=== PATIENT | male | born 1935 | race Caucasian/White ===

== ENCOUNTER → 2016-08-21 | Outpatient (CLI) | payer MEDICARE | END | disposition home or self-care (01) | LOC: PCVCIMAG 14:08 | PROVIDERS: ATTEND Nuclear Medicine Nuclear Cardiology | DX: I25.10 Atherosclerotic heart disease of native coronary artery without angina pectoris (principal); I73.9 Peripheral vascular disease, unspecified; I77.9 Disorder of arteries and arterioles, unspecified; I10 Essential (primary) hypertension; E78.00 Pure hypercholesterolemia, unspecified; E11.9 Type 2 diabetes mellitus without complications | CPT/HCPCS: 93925; G0463 ==

== ENCOUNTER → 2017-03-03 | Outpatient (CLI) | payer MEDICARE, OTHER ==
--- NOTE | 2017-03-03 17:19 | PCVCIMAG ---
APPROVED REPORT Laterality: Bilateral Patient Location: Out-Patient Indications Stenosis Doppler Spectral Velocity Analysis PSV / EDVPSV / EDV ECA (R) 190 / 6 cm/sECA (L) 247 / 0 cm/s dICA (R) 86 / 8 cm/sdICA (L) 115 / 10 cm/s Los (R) 85 / 9 cm/smICA (L) 80 / 13 cm/s pICA (R) 96 / 13 cm/spICA (L) 48 / 10 cm/s Bulb (R) 50 / 5 cm/sBulb (L) 45 / 6 cm/s dCCA (R) 69 / 5 cm/sdCCA (L) 53 / 5 cm/s mCCA (R) 71 / 4 cm/smCCA (L) 69 / 3 cm/s Vert (R) 48 / 10 cm/sVert (L) 113 / 20 cm/s Findings The right carotid bulb has moderate calcified plaque. The right proximal internal carotid artery shows <40% stenosis. The right common carotid artery shows no significant stenosis. The right external carotid artery shows >50% stenosis. The left carotid bulb has moderate calcified plaque. The left proximal internal carotid artery shows <40% stenosis. The left common carotid artery shows no significant stenosis. The left external carotid artery shows >90% stenosis. Conclusion 1. Right internal carotid artery stenosis (<40%) 2. Left internal carotid artery stenosis (<40%) 3. Antegrade vertebral flow
--- NOTE | 2017-03-03 17:53 | PCVCIMAG ---
EXAM: BILATERAL LOWER EXTREMITY ARTERIAL DUPLEX INDICATION: Peripheral Arterial Disease. Leg pain. FINDINGS: Right Leg: Satisfactory arterial waveforms in the common femoral and profunda femoral arteries. Good arterial waveforms throughout the superficial femoral artery without flow-limiting stenosis. Previous stent in the mid/upper popliteal artery with mild elevated velocities at its distal portion consistent with a 40-50% restenosis not felt to be flow-limiting. Complete occlusion throughout the posterior tibial artery. The peroneal artery and anterior tibial artery are patent. Left Leg: Satisfactory arterial waveforms in the common femoral artery. 70% stenosis at the origin the profunda femoral artery. Mild stenosis [place] proximal superficial femoral artery. Stents in the mid and upper superficial femoral artery are patent. Moderate velocity elevation distal superficial femoral artery of 320 cm/s compatible with a 75% restenosis at the distal margin of a prior stent. The popliteal artery is patent. Complete occlusion throughout the posterior tibial artery. Mild stenosis proximal peroneal artery. The anterior tibial artery is patent. IMPRESSION: 40-50% restenosis mid right popliteal artery at distal margin of a prior stent not felt to be flow-limiting. 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 Mild stenosis proximal [place] left superficial femoral artery with 75% restenosis distal left superficial femoral artery within prior stent. Interval follow-up in 6 months is suggested. LOC:[id number]
== END | disposition home or self-care (01) ==
LOC: PCVCIMAG 14:11
PROVIDERS: ATTEND Internal Medicine Cardiovascular Disease
DX: I65.23 Occlusion and stenosis of bilateral carotid arteries (principal); I25.10 Atherosclerotic heart disease of native coronary artery without angina pectoris; I10 Essential (primary) hypertension; E78.00 Pure hypercholesterolemia, unspecified; G47.33 Obstructive sleep apnea (adult) (pediatric); J44.9 Chronic obstructive pulmonary disease, unspecified; E11.9 Type 2 diabetes mellitus without complications; E11.40 Type 2 diabetes mellitus with diabetic neuropathy, unspecified; I70.293 Other atherosclerosis of native arteries of extremities, bilateral legs; I77.1 Stricture of artery; Z95.5 Presence of coronary angioplasty implant and graft; Z90.49 Acquired absence of other specified parts of digestive tract; Z87.891 Personal history of nicotine dependence; Z79.82 Long term (current) use of aspirin; Z79.84 Long term (current) use of oral hypoglycemic drugs; Z95.828 Presence of other vascular implants and grafts
CPT/HCPCS: 80061; 93005; 93880; 93925; G0463

== ENCOUNTER → 2017-03-16 | Outpatient (CLI) | payer MEDICARE, OTHER ==
--- NOTE | 2017-03-16 16:20 | PCVCINTER ---
APPROVED REPORT Patient Details Patient Status: Room #: 3 The patient is a 81 year-old Male Event Personnel Alex Sifuentes RT(R), Tran Hairston RT(R), Bobby Fitzgerald RN Risk Factors Arterial HypertensionDysplipidemia (Type: 1), Peripheral Vascular Disease, Chronic Lung DiseaseHypercholesterolemiaPhysical Activity, Diabetes (Control: Oral)Tobacco History (Former) Previous Procedures/Diagnoses Previous PCI, Previous Femoral Procedure, Previous Vascular Surgery, CAD, PVD, COPD, Hypertension, Diabetes, Sleep apnea Procedure Narrative The patient was brought electively to the Cardiac Catheterization Laboratory and was prepped and draped in a sterile manner. The right femoral was infiltrated with subcutaneous anesthesia. The right coronary system was accessed and visualized with a FR4 catheter. The left coronary system was accessed and visualized with a FL4 catheter. The left ventricle was accessed and visualized with a Straight Pigtail catheter. Left ventriculogram was performed in BOSS projection. Closure device was deployed with a 8 Fr FISH. The patient tolerated the procedure well and there were no complications associated with the procedure. There was no hematoma. Hemodynamics The aortic pressure is 134/69 mmHg with a mean of 95 mmHg. The left ventricular pressure is 155/3 mmHg with a mean of 7 mmHg. Conclusion #1 normal left ventricular size and systolic function EF 55-60% #2 left main long free of disease giving rise to LAD and circumflex #3 LAD diagonal system diffusely diseased with a 40% proximal mid vessel lesion in the LAD #4 circumflex OM nondominant diffuse disease distally minimal distribution #5 dominant right coronary artery previously placed stents are widely patent with mild irregularity noted Recommendations and plan continue aggressive risk factor modification. No lifting for 48 hours to line tub makexyz or Diallo for a week.
--- NOTE | 2017-03-16 16:43 | PCVCINTER ---
EXAM: 1. AORTOGRAM AND BILATERAL LOWER EXTREMITY RUNOFF ANGIOGRAM 2. BILATERAL RENAL ANGIOGRAPHY 3. LEFT PERONEAL ARTERY ATHERECTOMY AND SCORING BALLOON ANGIOPLASTY. 4. SECONDARY THROMBECTOMY LEFT PERONEAL ARTERY. 5. LEFT ANTERIOR TIBIAL ARTERY ANGIOPLASTY 6. DRUG COATED BALLOON ANGIOPLASTY LEFT SUPERFICIAL FEMORAL ARTERY. INDICATION: Peripheral arterial disease. Coronary artery disease. Left leg claudication. Hypertension. Renal atherosclerosis. PROCEDURE: Procedure and risks of angiography intervention is appropriate including limb loss stroke and were discussed with the patient's family and consent obtained. The patient's right groin was prepped abnormal sterile fashion. IV conscious sedation was used to procedure with appropriate monitoring for 90 minutes. Ultrasound was used to interrogate the right groin and showed the right common femoral artery to be patent. A permanent spot film was obtained. Under ultrasound guidance access into the right common femoral artery was obtained and a 5 [place] sheath was placed. Through this a 5 [place] flush catheter was placed into the abdominal aorta at the level of the renal arteries and AP aortogram was performed. Catheter was positioned at the aortic bifurcation and both oblique views of the pelvis were obtained. Catheter was positioned into the right external iliac artery and right leg runoff angiography was performed. Catheter was exchanged for a visceral catheter was placed into the right renal arteries and right renal angiograms obtained. Catheter was placed into the the left renal arteries and left renal angiograms were obtained. Catheter was advanced to the level of the left external iliac artery and left leg runoff angiography was obtained. Patient was given 4500 units of heparin. A 6 [place] crossover sheath was placed via the right groin to the level of the left common femoral artery. Atherectomy of the left superficial femoral artery was performed with 0.9 mm Spectranetics laser atherectomy catheter in the standard fashion. Atherectomy of the left peroneal artery was performed with 0.9 mm Spectranetics laser atherectomy catheter in the standard fashion. Following atherectomy small areas of thrombus were observed and because of this secondary thrombectomy throughout the left peroneal artery was carried out with mechanical suction thrombectomy catheter in the standard fashion. Minimal debris was removed. Next a 3.0 x 100 Angiosculpt balloon was used to perform scoring angioplasty across the areas of stenosis in the upper left peroneal artery. Next a 2.5 x 120 Cordis sleek METAL OFF BEARER catheter was used to perform angioplasty across the areas of stenosis in the upper left anterior tibial artery. Following this drug coated balloon angioplasty of the left superficial femoral artery was carried out with a 5 x 60 Medtronic Admiral METAL OFF BEARER catheter. Follow-up angiogram was performed. Catheters and wires removed. Dr. Bauer joined the procedure and he performed coronary angiography. Please see his separate dictation for full details. Sheath was removed and hemostasis obtained using the FISH device. No immediate complications. FINDINGS: Aortogram: There is one right and one left renal artery. Moderate plaque throughout the infrarenal abdominal aorta without significant stenosis. Pelvis: Previous stents throughout the right and left common and external iliac arteries show good patency. The common femoral and profunda femoral arteries show satisfactory patency. Right renal artery: Moderate plaque proximal vessel causes mild stenosis not felt to be flow-limiting. No branch vessel stenosis. Left renal artery: Mild plaque proximal vessel does not cause significant stenosis. No branch vessel stenosis. Right leg: Moderate plaque in the mid superficial femoral artery causes mild stenosis not felt to be flow-limiting. Previous stent upper popliteal artery shows mild restenosis of 30-40% but this is not flow-limiting. Mid and lower popliteal artery remains patent. The peroneal artery and posterior tibial artery are occluded throughout. Anterior tibial artery shows good patency throughout its length to runoff into the dorsalis pedis with refilling of the plantar arteries. Left leg: Previous stent in the proximal most superficial femoral artery is maintaining good patency. Moderate restenosis of the prior stent in the proximal/mid superficial femoral artery. Moderate scattered plaque in the popliteal artery does not cause significant stenosis. The posterior tibial artery shows long segment chronic occlusion. 90% stenosis proximal portion of the anterior tibial artery which then shows good patency into the dorsalis pedis. Peroneal artery has moderate stenosis in its proximal portion but then shows good patency to refill the distal most posterior tibial artery which runs off into the plantar arteries. Left superficial femoral artery: Following procedure as above vessel shows good patency. Left peroneal artery: Following procedure as above vessel is widely patent. Left anterior tibial artery: Following procedure as above vessel shows good patency. IMPRESSION: Mild restenosis previous stent proximal right popliteal artery not felt to be flow-limiting. Moderate restenosis of the prior stent in the proximal/mid right left superficial femoral artery was treated as above with good patency restored. Moderate to high-grade restenosis in the proximal left peroneal artery and in the proximal left anterior tibial artery were treated as above with good patency restored. follow up LOC:[id number]
--- NOTE | 2017-03-16 17:29 | PCVCIMAG ---
APPROVED REPORT Study performed: 03/16/2017 15:33:10 EXAM: Comprehensive 2D, Doppler, and color-flow Echocardiogram Patient Location: Bedside/angio suite Room #: 3Status: routine BSA: 1.97 HR: 72 bpmBP: 122/71 mmHg Rhythm: NSR with frequent PACs Other Information Study Quality: Technically Limited Technically limited study due to lung disease, inability to position patient. Indications COPD Atrial Fibrillation CAD 2D Dimensions LVEF(%): 47.43 (>50%) IVSd: 13.57 (7-11mm) LVDd: 38.20 mm PWd: 12.73 (7-11mm) LVDs: 29.28 (25-40mm) Left Atrium: 39.42 (27-40mm) Aortic Root: 38.35 mm LV Single Plane 4CH: 63.02 % LV Single Plane 2CH: 47.20 %Cross's LVEF: 55.11 % Biplane EF: 54.1 % Volumes Left Atrial Volume (Systole) Single Plane 4CH: 71.51 mLSingle Plane 2CH: 74.60 mL LA ESV Index: 39.00 mL/m2 Aortic Valve AoV Peak Zeb.: 1.51 m/s AO Peak Gr.: 9.99 mmHgLVOT Max P.90 mmHg LVOT Max V: 1.21 m/s Pulmonary Valve PV Peak Zeb.: 0.86 m/sPV Peak Gr.: 2.99 mmHg Tricuspid Valve TR Peak Zeb.: 2.25 m/s TR Peak Gr.: 20.30 mmHg Left Ventricle The left ventricle is normal size. There is normal LV segmental wall motion. Mild concentric left ventricular hypertrophy. Left ventricular systolic function is normal. The left ventricular ejection fraction is within the normal range. LVEF is 50-55%. Grade I - abnormal relaxation pattern. Right Ventricle The right ventricle is normal size. The right ventricular systolic function is normal. Atria Left atrium is mildly dilated. Right atrium is mildly dilated. Aortic Valve The aortic valve is normal in structure. No aortic regurgitation is present. There is no aortic valvular stenosis. Mitral Valve The mitral valve is normal in structure. There is no mitral valve regurgitation noted. No evidence of mitral valve stenosis. Tricuspid Valve The tricuspid valve is normal in structure. Trace tricuspid regurgitation with PAP of 27 mmHg. Pulmonic Valve The pulmonary valve is normal in structure. There is no pulmonic valvular regurgitation. Great Vessels The aortic root is normal in size. IVC is normal in size and collapses with >50% inspiration Pericardium There is no pericardial effusion. <Conclusion> The left ventricle is normal size. Left ventricular systolic function is normal. The left ventricular ejection fraction is within the normal range. LVEF is 50-55%. Grade I - abnormal relaxation pattern. The right ventricle is normal size. Left atrium is mildly dilated. Right atrium is mildly dilated. The aortic valve is normal in structure. There is no mitral valve regurgitation noted. There is no pericardial effusion. Trace tricuspid regurgitation with PAP of 27 mmHg.
== END | disposition home or self-care (01) ==
LOC: PCVCINTER 08:50
PROVIDERS: ATTEND Nuclear Medicine Nuclear Cardiology
DX: I70.213 Atherosclerosis of native arteries of extremities with intermittent claudication, bilateral legs (principal); I25.10 Atherosclerotic heart disease of native coronary artery without angina pectoris; I10 Essential (primary) hypertension; I70.1 Atherosclerosis of renal artery; E78.00 Pure hypercholesterolemia, unspecified; Z72.0 Tobacco use
CPT/HCPCS: 36252; 37186; 37225; 37228; 37229; 75716; 76937; 93306; 93458; 99152; 99153; C1725; C1751; C1757; C1760; C1769; C1885; C1894; C2623; Q9966